=== PATIENT | female | born 2000 | race Caucasian/White ===

== ENCOUNTER 2023-12-27 19:32 | Emergency (ER) | payer SELFPAY ==
--- NOTE | 2023-12-27 19:36 | ED.GENADULT ---
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 Tyson Gonzalez HPI narrative: 23-year-old female with no significant medical problems who presents emergency department for evaluation of a chronic, nonhealing wound to her left forearm. The patient states that she was seen on 11/27/2023 add an emergency department in [place] and was treated with a 3 times a day for 1 week with no improvement of her symptoms. The patient states that she was on a beach in [place] and was bit by an insect 3 months prior and since then she is developed this chronic ulcerative lesion to her forearm. She states that her uncle had a similar lesion and was diagnosed with leishmaniasis and was treated with injectable medications. Patient states she did initially have a febrile illness prior to developing the lesion. The patient is from [place] insect bite occurred in [place]. 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 She denies tobacco, alcohol and drug use Social History Social History Smoked in Last 30 Days: No Use of substances other than those prescribed or required for medical reasons: No Advance Directives: No Advance Directives Information Provided: Yes Do you have a plan to hurt others: No Plan Physical Exam ED Vital Signs: Vital Signs - 24 hr 12/27/23 19:38 12/27/23 20:44 12/27/23 21:42 Temperature 97.0 F 97.8 F 98.8 F Pulse Rate 75 55 60 Respiratory Rate 16 16 16 Blood Pressure 114/66 95/57 L 110/50 L Pulse Oximetry 98 100 100 Oxygen Delivery Method Room Air Room Air Room Air BMI result Body Mass Index 28.2 Vital signs were normal Exam: General: Awake, alert in no distress Head: Normocephalic, atraumatic EENT: PERRL, Lids normal, sclera normal, conjunctiva normal, nose normal , ears normal, throat without erythema or exudates Neck: Supple, no cervical, axillary, epitrochlear lymphadenopathy noted Lung: breath sounds symmetric, no wheezing, rales or rhonchi Chest: symmetric movement, nontender Heart: regular rate and rhythm, normal S1, S2 no murmurs or rubs Abdomen: soft, non-tender, nondistended, normal bowel sounds Back: no vertebral tenderness, no CVAT Extremities: The patient has a ulcerative lesion to her left forearm with raised margins and hard cicatrix. There has no increased erythema or warmth. Neuro: Awake, alert, oriented, normal speech, cranial nerves intact, moves all extremities symmetrically Psych: Pleasant, cooperative Course Course Course Narrative: This is an RME done by MELISSA Meyer: Additional HPI, ROS, PE not included below will be deferred to primary provider. 23 yo f presents w/ pain to left wrist/forearm region X 1 month worsening got bit by a chince in [place]. Is having severe pain and worsening pain, swelling to site of insect bite. Denies numbness, tingling, fevers, chills. Pe- large crater to left side of wrist/forearm region. TTP Medical Decision Making Medical Decision Making MDM Narrative: 23-year-old female with no significant past medical history, from [place] who sustained an insect bite on the beach while she was in [place] proximally 3 months prior and now has a chronic ulcerative lesion to her left lateral forearm just below the wrist. Patient was treated with a 7 day course of amoxicillin with no improvement of her symptoms. The patient's uncle who lives in [facility] as well he had a similar lesion and was diagnosed with leishmaniasis. States that prior to the lesion developing she did have a febrile illness. Vital signs were normal. Physical examination revealed no significant adenopathy. The patient does have a chronic appearing lesion which does have raised margins. No evidence for cellulitis Differential diagnosis: ?Includes but is not limited to leishmaniasis, fungal lesion, nonhealing ulcerative lesion Course: My independent interpretation of the patient's laboratory evaluation is as follows: Normocytic anemia with an H&H of 12.3 and 35.9. WBC was normal 7900 with 44% neutrophils and 44% lymphocytes. ESR was normal at 5. CMP revealed an elevated chloride of 109. Elevated ALT of 32. CRP was normal 0.18 The patient's lesion does appear to be consistent with leishmaniasis. The patient will be treated with fluconazole 200 mg daily for 6 weeks. We do not have a ammonium nitrate crystallizer here that can follow this patient up and I did to [facility] who will search for ammonium nitrate crystallizer in [place] and gave the patient these numbers. Try to follow-up with a ammonium nitrate crystallizer in 2 weeks to see ammonium nitrate crystallizer can biopsy this nonhealing lesion to determine if she has leishmaniasis. Lab Data 12/27/23 20:28 12/27/23 20:28 Labs: Lab Results 12/27/23 Range/Units 20:28 WBC 7.9 (4.8-10.8) X10*3/uL RBC 3.95 L (4.20-5.50) X10*6/uL Hgb 12.3 (12.0-16.0) g/dl Hct 35.9 L (37.0-47.0) % MCV 90.9 (80.0-98.0) fL MCH 31.1 (27.0-33.0) pg MCHC 34.3 (31.0-35.0) g/dl RDW 12.8 (11.0-16.0) % Plt Count 308 (160-400) X10*3/uL MPV 9.7 (9.4-12.3) fL Immature Gran % (Auto) 0.3 (0.0-0.4) % Neut % (Auto) 44.7 L (45-73) % Lymph % (Auto) 44.3 H (20-40) % [place] % (Auto) 8.7 (2-11) % Eos % (Auto) 1.6 (0-4) % Baso % (Auto) 0.4 (0-2) % Lymph # (Auto) 3.5 (1.2-4.9) X10*3/uL [place] # (Auto) 0.7 (0.1-1.2) X10*3/uL Eos # (Auto) 0.1 (0.0-0.4) X10*3/uL Baso # (Auto) 0.0 (0.0-0.2) X10*3/uL Abs Immat Gran (auto) 0.02 (0.00-0.03) X10*3/uL Absolute Neuts (auto) 3.6 (2.0-8.3) x10*3/uL Absolute Nucleated RBC 0.000 (0.0-0.012) X10*3/uL Nucleated RBC % (auto) 0.0 (0.0-0.2) /100WBC ESR 5 (0-20) MM/HR Sodium 141 (135-145) mmol/L Potassium 3.9 (3.3-5.1) mmol/L Chloride 109 H (96-108) mmol/L Carbon Dioxide 28 (22-29) mmol/L Anion Gap 8 L (12-20) BUN 11 (9-16) mg/dL Creatinine 0.66 (0.5-1.4) mg/dL Estim Creat Clear Calc 102.6 Estimated GFR > 60 Random Glucose 91 (60-115) mg/dL Calcium 9.5 (8.4-10.2) mg/dL Total Bilirubin 0.4 (0.0-1.0) mg/dL AST 17 (5-31) U/L ALT 32 H (0-31) U/L Alkaline Phosphatase 54 (39-117) U/L C-Reactive Protein 0.18 (< or = 0.50) mg/dL Total Protein 7.1 (6.5-8.0) g/dL Albumin 4.3 (3.5-5.0) g/dL Discharge Plan Discharge Clinical Impression: Leishmaniasis, cutaneous Patient Disposition: Home, Self-Care Instructions: Leishmaniasis (DC) Additional Instructions: You have a chronic appearing nonhealing ulcer to your skin which could be Leishmaniasis. This diagnosis is usually made by his skin biopsy however based on the appearance of the skin ulcer, I am going to treat you with an oral medicine for Leishmaniasis called fluconazole. Take fluconazole 200 mg pills, take 1 pill daily for 6 weeks You will need to follow-up with a ammonium nitrate crystallizer for further diagnosis and treatment. We do not have a ammonium nitrate crystallizer at [facility] . You can try calling the following ammonium nitrate crystallizer in [place] to see if they can follow you up in 2-4 weeks [facility] [place], [place] ? [facility] [phone] ? 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 [phone] [employer] End Developer Design[employer] [address] ? Prescriptions: New fluconazole 200 mg tablet 200 mg PO DAILY Qty: 60 0RF Interventions: ED Discharge Assessment Last Done: 12/27/23 21:42 Discharge Date/Time: 12/27/23 21:43 Print Language: Belarusian
[2023-12-27 19:38] VITALS: BP 114/66; PULSE 75; RESP 16; TEMP 36.1; O2SAT 98; BMI 28.2
--- NOTE | 2023-12-27 20:27 | PC.NURSE ---
provider into assess pt, labs being drawn.
[2023-12-27 20:35] LABS: MANUAL DIFF FLAG NO
[2023-12-27 20:36] LABS: Basophils Percent Auto 0.4 % (0-2); Eosinophils Absolute Auto 0.1 X10*3/uL (0.0-0.4); Eosinophils Percent Auto 1.6 % (0-4); Hematocrit 35.9 % (37.0-47.0); Hemoglobin 12.3 g/dl (12.0-16.0); Imm Gran Abs Auto 0.02 X10*3/uL (0.00-0.03); Imm Gran Pct Auto 0.3 % (0.0-0.4); Lymphocytes Absolute Auto 3.5 X10*3/uL (1.2-4.9); Lymphocytes Percent Auto 44.3 % (20-40); Mean Corpuscular HGB Conc 34.3 g/dl (31.0-35.0); Mean Corpuscular Hemoglobin 31.1 pg (27.0-33.0); Mean Corpuscular Volume 90.9 fL (80.0-98.0); Mean Platelet Volume 9.7 fL (9.4-12.3); Monocytes Absolute Auto 0.7 X10*3/uL (0.1-1.2); Monocytes Percent Auto 8.7 % (2-11); Neutrophils Absolute Auto 3.6 x10*3/uL (2.0-8.3); Neutrophils Percent Auto 44.7 % (45-73); Platelet Count 308 X10*3/uL (160-400); Red Blood Count 3.95 X10*6/uL (4.20-5.50); Red Cell Distribution Width 12.8 % (11.0-16.0); White Blood Count 7.9 X10*3/uL (4.8-10.8)
[2023-12-27 20:44] VITALS: BP 95/57; PULSE 55; RESP 16; TEMP 36.6; O2SAT 100
[2023-12-27 20:55] LABS: Alanine Aminotransferase 32 U/L (0-31); Albumin Level 4.3 g/dL (3.5-5.0); Alkaline Phosphatase 54 U/L (39-117); Anion Gap 8 (12-20); Aspartate Amino Transferase 17 U/L (5-31); Bilirubin Total 0.4 mg/dL (0.0-1.0); Blood Urea Nitrogen 11 mg/dL (9-16); C Reactive Protein 0.18 mg/dL (< or = 0.50); Calcium 9.5 mg/dL (8.4-10.2); Carbon Dioxide 28 mmol/L (22-29); Chloride 109 mmol/L (96-108); Creatinine Clr Calc Pharmacy 102.6; Estimated Glomerular Filt Rate > 60; Glucose Random 91 mg/dL (60-115); Potassium 3.9 mmol/L (3.3-5.1); Sodium 141 mmol/L (135-145); Total Protein 7.1 g/dL (6.5-8.0)
[2023-12-27 21:16] LABS: Erythrocyte Sedimentation Rate 5 MM/HR (0-20)
--- NOTE | 2023-12-27 21:38 | PC.NURSE ---
Reviewed discharge instructions with pt, pt verbalized understanding, no sign of distress, pt able to move digits and extremity, positive cms,
[2023-12-27 21:42] VITALS: BP 110/50; PULSE 60; RESP 16; TEMP 37.1; O2SAT 100
== END 2023-12-27 21:43 | disposition home or self-care (01) ==
PROVIDERS: Physician Assistant; Emergency Provider Emergency Medicine Emergency Medical Services
DX: B55.1 Cutaneous leishmaniasis (principal); Z79.899 Other long term (current) drug therapy
CPT/HCPCS: 36415; 80053; 85025; 85652; 86140; 99283; 99284

== ENCOUNTER 2024-05-24 10:05 | Outpatient (REF) | payer SELFPAY ==
[2024-05-24 11:34] LABS: HCG Quantitative < 2 mIU/mL
== END 2024-05-24 10:06 | disposition home or self-care (01) ==
LOC: HO.HHCL 10:05
PROVIDERS: Visit Provider Internal Medicine
DX: L08.9 Local infection of the skin and subcutaneous tissue, unspecified (principal)
CPT/HCPCS: 36415; 84702